=== PATIENT | female | born 1980 | race Caucasian/White ===

== ENCOUNTER 2018-01-16 11:50 | Emergency (ER) | payer BC ==
[2018-01-16 12:16] VITALS: BP 148/93
--- NOTE | 2018-01-16 13:26 | EDM.PDOC ---
ED HPI GENERAL MEDICAL PROBLEM - General Chief Complaint: Lower Extremity Injury/Pain Stated Complaint: LT LEG HURTS Time Seen by Provider: 01/16/18 11:56 Source of Information: Reports: Patient History Limitations: Reports: No Limitations - History of Present Illness INITIAL COMMENTS - FREE TEXT/NARRATIVE: History of present illness: []Patient was hiking history fell into a denis hole twisting her left knee. She felt a pop and has had severe symptoms. She denies any other injuries. Review of systems: As per history of present illness and below otherwise all systems reviewed and negative. Past medical history: As per history of present illness and as reviewed below otherwise noncontributory. Surgical history: As per history of present illness and as reviewed below otherwise noncontributory. Social history: No reported history of drug or alcohol abuse. Family history: As per history of present illness and as reviewed below otherwise noncontributory. Physical exam: General: Well developed, well nourished in NAD HEENT: Atraumatic, normocephalic, pupils reactive, negative for conjunctival pallor or scleral icterus, mucous membranes moist, throat clear, neck supple, nontender, trachea midline. Lungs: Clear to auscultation, breath sounds equal bilaterally, chest nontender. Heart: S1S2, regular, negative for clicks, rubs, or JVD. Abdomen: Soft, nondistended, nontender. Negative for masses or hepatosplenomegaly. Negative for costovertebral tenderness. Pelvis: Stable nontender. Genitourinary: Deferred. Rectal: Deferred. Extremities: Atraumatic, left knee shows no joint effusion with positive tenderness to palpation negative for cords or calf pain. Neurovascular unremarkable. Neuro: Awake, alert, oriented. Cranial nerves II through XII unremarkable. Cerebellum unremarkable. Motor and sensory unremarkable throughout. Exam nonfocal. Skin:warm and dry Diagnostics: X-ray left knee negative for fracture Therapeutics: Patient declined meds ED Course: Uneventful Impression: Left knee sprain Prescriptions: Declined pain med prescription Plan: Ice, elevate, follow-up with primary care. Definitive disposition and diagnosis as appropriate pending reevaluation and review of above. left knee Pain Score (Numeric/FACES): 9 - Related Data Allergies Allergy/AdvReac Type Severity Reaction Status Date / Time No Known Allergies Allergy Verified 01/16/18 12:14 Home Meds: Home Meds . [No Known Home Meds] 01/16/18 [History] Past Medical History Other HEENT History: wears glasses Cardiovascular History: Reports: None Respiratory History: Reports: Bronchitis, Recurrent Gastrointestinal History: GRILL CHEF History: Reports: None, Other (See Below) Other GRILL CHEF History: hysterectomy Musculoskeletal History: Reports: None Neurological History: Reports: Migraines Psychiatric History: Reports: Depression Endocrine/Metabolic History: Reports: Obesity/BMI 30+ Hematologic History: Reports: None Immunologic History: Reports: None Oncologic (Cancer) History: Reports: None Dermatologic History: Reports: None - Infectious Disease History Infectious Disease History: Reports: None - Past Surgical History Head Surgeries/Procedures: Reports: None HEENT Surgical History: Reports: Tonsillectomy GI Surgical History: Reports: Other (See Below) Other GI Surgeries/Procedures: rectocele repair Female Surgical History: Reports: Hysterectomy Other Female Surgeries/Procedures: hx rectocele with bladder repair Social & Family History - Family History Family Medical History: Noncontributory - Tobacco Use Smoking Status *Q: Current Every Day Smoker Years of Tobacco use: 15 Packs/Tins Daily: 0.5 Second Hand Smoke Exposure: Yes - Caffeine Use Caffeine Use: Reports: Coffee - Recreational Drug Use Recreational Drug Use: No Review of Systems - Review of Systems Review Of Systems: ROS reveals no pertinent complaints other than HPI. ED EXAM, GENERAL - Physical Exam Exam: See Below (See history of present illness) Course - Vital Signs Last Recorded V/S: Last Vital Signs Temp 97.2 F 01/16/18 12:15 Pulse 119 H 01/16/18 12:15 Resp 18 01/16/18 12:15 BP 148/93 H 01/16/18 12:15 Pulse Ox 98 01/16/18 12:15 - Orders/Labs/Meds Orders: Active Orders 24 hr Category Date Time Status Knee 3V Lt [CR] Stat Exams 01/16/18 12:20 Taken Departure - Departure Time of Disposition: 13:25 Disposition: Home, Self-Care 01 Condition: Good Clinical Impression: Left knee sprain Qualifiers: Encounter type: initial encounter Involved ligament of knee: unspecified ligament Qualified Code(s): S83.92XA - Sprain of unspecified site of left knee, initial encounter - Discharge Information *PRESCRIPTION DRUG MONITORING PROGRAM REVIEWED*: No *COPY OF PRESCRIPTION DRUG MONITORING REPORT IN PATIENT HORACE: No Referrals: PCP,None [Primary Care Provider] - Additional Instructions: The following information is given to patients seen in the emergency department who are being discharged to home. This information is to outline your options for follow-up care. We provide all patients seen in our emergency department with a follow-up referral. The need for follow-up, as well as the timing and circumstances, are variable depending upon the specifics of your emergency department visit. If you don't have a primary care physician on staff, we will provide you with a referral. We always advise you to contact your personal physician following an emergency department visit to inform them of the circumstance of the visit and for follow-up with them and/or the need for any referrals to a consulting specialist. The emergency department will also refer you to a specialist when appropriate. This referral assures that you have the opportunity for follow-up care with a specialist. All of these measure are taken in an effort to provide you with optimal care, which includes your follow-up. Under all circumstances we always encourage you to contact your private physician who remains a resource for coordinating your care. When calling for follow-up care, please make the office aware that this follow-up is from your recent emergency room visit. If for any reason you are refused follow-up, please contact the [facility] at and asked to speak to the emergency department charge nurse. Ice, elevate, ibuprofen for pain follow-up with primary care or return to ER if symptoms worsen or change. [facility] [address] [place] [phone] - My Orders Last 24 Hours: My Active Orders 01/16/18 12:20 Knee 3V Lt [CR] Stat - Assessment/Plan Last 24 Hours: My Active Orders 01/16/18 12:20 Knee 3V Lt [CR] Stat
--- NOTE | 2018-01-18 09:58 | CR ---
EXAM DATE: 01/16/18 PATIENT'S AGE: 37 Patient: STEPHANIE GARNER Facility: [place], [place] Site . Site : 1980 Study: XRay Knee Left [id number]/16/2018 12:58:44 PM Ordering Physician: Peter Peterson Final Report: INDICATION: Pain fell TECHNIQUE: Three views of the left knee FINDINGS: Normal alignment. No fractures. No effusion. Mild soft tissue swelling. Dictated by Randa Bowles MD @ Jan 16 2018 1:13PM (Electronic Signature) Report Signed by Proxy. MEGAN
== END 2018-01-16 13:38 | disposition home or self-care (01) ==
LOC: MW.ED 11:50
DX: S83.92XA Sprain of unspecified site of left knee, initial encounter (principal); F17.210 Nicotine dependence, cigarettes, uncomplicated; X50.1XXA Overexertion from prolonged static or awkward postures, initial encounter
CPT/HCPCS: 73562-26-LT; 73562-LT; 99283